=== PATIENT | female | born 2005 | race Caucasian/White ===

== ENCOUNTER 2024-02-13 14:48 | Inpatient (IN) | payer MEDICAID ==
[~2024-02-13] VITALS: Ht 157.5 cm; Wt 59.1 kg
[2024-02-13] MEDS: haloperidol lactate 5mg/ml inj ONE (15:13)
[2024-02-13] MEDS: diphenhydrAMINE 50 mg/ml inj IM ONE (15:13)
[2024-02-13] MEDS: haloperidol lactate 5mg/ml inj IM ONE ×2 (15:14)
[2024-02-13] MEDS: naloxone 2mg/2ml inj ONE (15:14)
[2024-02-13] MEDS: BUPIVAcaine 0.25% w/Epi /PF 30ml vial SQ ONE ×2 (15:14→18:58)
[2024-02-13] MEDS: naloxone 2mg/2ml inj IV STA (15:15)
[2024-02-13 15:19] LABS: ABG BASE EXCESS -5.4 mmol/L (-2.0-2.0); ABG HCO3 17.4 mmol/L (22.0-26.0); ABG OXYGEN SATURATION 96.8 % (94-97); ABG PCO2 (T) 27.2 mmHg (32.0-45.0); ABG PH (T) 7.425 (7.350-7.450); ABG PO2 (T) 92.1 mmHg (75.0-100.0); ALLEN'S TEST POSITIVE; FCOHb 0.3 % (0.0-3.9); FHHb 3.2 % (0.0-5.0); FMetHb 0.3 % (0.0-1.5); FO2Hb 96.2 % (94-97); MODE ROOM AIR; TOTAL HEMOGLOBIN 13.4 G/dl (12.0-16.0)
[2024-02-13 15:24] LABS: BASOPHILS # (AUTO) 0.1 X10'3 (0-0.2); BASOPHILS % (AUTO) 0.7 % (0-1); EOSINOPHILS % (AUTO) 0.1 % (0-6); HEMATOCRIT 38.5 % (35.0-45.0); HEMOGLOBIN 12.3 g/dl (12.0-16.0); LYMPHOCYTES # (AUTO) 3.4 X10'3 (1.1-4.8); LYMPHOCYTES % (AUTO) 30.8 % (21-51); MEAN CORPUSCULAR HEMOGLOBIN 26.1 PG (27.0-31.0); MEAN CORPUSCULAR HGB CONC 31.9 g/dL (33.0-36.5); MEAN CORPUSCULAR VOLUME 81.9 FL (78-98); MEAN PLATELET VOLUME 7.4 FL (7.4-10.4); MONOCYTES # (AUTO) 0.8 X10'3 (0-0.9); MONOCYTES % (AUTO) 7.4 % (2-12); NEUTROPHILS # (AUTO) 6.7 X10'3 (1.8-7.7); PLATELET COUNT 430 X10'3 (140-440); RED CELL DISTRIBUTION WIDTH 14.8 % (11.5-14.5); WHITE BLOOD COUNT 10.9 X10'3 (4.5-11.0)
[2024-02-13 15:37] LABS: ANION GAP 18 (8-16); BLOOD UREA NITROGEN 6 MG/DL (7-18); BUN/CREATININE RATIO 6.3 (10.0-20.0); CALCIUM 9.1 MG/DL (8.5-10.1); CHLORIDE 102 MMOL/L (99-107); CREATINE KINASE 116 U/L (26-192); CREATININE 0.95 MG/DL (0.40-0.90); GLUCOSE 166 MG/DL (70-104); SODIUM 139 MMOL/L (135-145); eGFR 76 ML/MIN
[2024-02-13 15:42] LABS: ETHANOL 328 MG/DL (<10); POTASSIUM 2.9 MMOL/L (3.5-5.1)
[2024-02-13] MEDS: diazepam inj 5 MG/ML inj. IV ONE ×3 (15:43→18:47)
[2024-02-13] MEDS: diazepam inj 5 MG/ML inj. ONE (15:43)
[2024-02-13 16:19] LABS: URINE HCG NEGATIVE (NEG)
[2024-02-13 16:59] LABS: URINE AMPHETAMINE SCREEN NEGATIVE (Neg); URINE BARBITUATE SCREEN NEGATIVE (Neg); URINE BENZODIAZEPINES SCREEN NEGATIVE (Neg); URINE CANNABINOID SCREEN POSITIVE (Neg); URINE COCAINE SCREEN NEGATIVE (Neg); URINE METHADONE SCREEN NEGATIVE (Neg); URINE PHENCYCLIDINE SCREEN NEGATIVE (Neg)
[2024-02-13] MEDS: ondansetron/PF 4mg/2ml inj IV ONE ×2 (18:13→23:09)
[2024-02-13] MEDS: LIDOcaine 1% w/EPI 1:100,000 inj. MDV 50 ML VIAL ONE (18:57)
[2024-02-13] MEDS: LIDOcaine 0.5% W/epiNEPHrine 1:200,000 50ml vial IJ ONE (18:58)
[2024-02-13] MEDS: ziprasidone IM 20mg inj **IM only IM ONE (20:11)
[2024-02-13] MEDS ORDERED: pantoprazole 40mg IV 80 MG in normal saline 100ml IV soln 100 ML IV ONE (22:20)
[2024-02-13] MEDS ORDERED: magnesium 4gm in 100ml NS 100 ML IV PRN (22:45)
[2024-02-13] MEDS ORDERED: HYDROmorphone/PF 0.2 MG/ML SYRINGE IV PRN (22:45)
[2024-02-13] MEDS ORDERED: potassium Cl 20 mEq SR tablet PO PRN (22:45)
[2024-02-13] MEDS ORDERED: dextrose 50%-water 50ml dispensing syringe IV PRN (22:45)
[2024-02-13] MEDS ORDERED: magnesium Cl slow-release 64mg tablet PO PRN (22:45)
[2024-02-13] MEDS ORDERED: mag hydrox/Alum hydrox/simeth 30ml oral suspension PO PRN (22:45)
[2024-02-13] MEDS ORDERED: potassium Cl 40MEQ/1/2NS 520ml 520 ML IV PRN (22:45)
[2024-02-13] MEDS ORDERED: magnesium 2GM in 50ml NS 50 ML IV PRN (22:45)
[2024-02-13 22:52] LABS: GASTRIC OCCULT BLOOD POSITIVE (Neg)
[2024-02-13] MEDS ORDERED: NO HOME MEDS (22:53)
[2024-02-13 23:06] LABS: MAGNESIUM 2.1 MG/DL (1.5-2.4); PHOSPHORUS 3.2 MG/DL (2.3-4.5)
[2024-02-13] MEDS: potassium Cl 20mEq in NS 1,000 ML IV SCH (23:09)
[2024-02-13] MEDS: pantoprazole 40 MG vial IV ONE (23:09)
[2024-02-13] MEDS: POTASSIUM BICARB 20meq eff tab 20 MEQ TABLET.EFF PO SCH (23:10)
[2024-02-13] MEDS: TETanus/Pertussis (Acell)/Diphther VAC/PF (Tdap-Adult) 0.5ml syringe IMVAC ONE (23:10)
[2024-02-13] MEDS: diazepam inj 5 MG/ML inj. IV PRN (23:59)
[2024-02-14 00:07] LABS: ALANINE AMINOTRANSFERASE 17 U/L (12-78); ALBUMIN 3.6 G/DL (3.4-5.0); ALKALINE PHOSPHATASE 73 IU/L (20-180); ASPARTATE AMINO TRANSFERASE 30 U/L (10-37); BILIRUBIN,DIRECT 0.1 MG/DL (0-0.3); BILIRUBIN,TOTAL 0.2 MG/DL (0.1-1.0); MAGNESIUM 1.9 MG/DL (1.5-2.4); PHOSPHORUS 3.4 MG/DL (2.3-4.5); TOTAL PROTEIN 7.2 G/DL (6.4-8.2)
[2024-02-14] MEDS: proCHLORperazine 10 MG/2 ml inj IV ONE (00:37)
[2024-02-14] MEDS: ringers solution, lacted 1,000 ML IV ONE (00:39)
[2024-02-14] MEDS: haloperidol lactate 5mg/ml inj IM PRN (00:58)
[2024-02-14] MEDS: potassium Cl 20 mEq SR tablet PO PRN (02:46)
[2024-02-14] MEDS: diphenhydrAMINE 50 mg/ml inj IV PRN (02:59)
[2024-02-14] MEDS: diazepam inj 5 MG/ML inj. IM ONE (03:41)
[2024-02-14] MEDS: ondansetron/PF 4mg/2ml inj IV PRN (05:41)
[2024-02-14 06:02] LABS: BILIRUBIN,URINE NEGATIVE (Neg); CLARITY,URINE SLIGHTLY CLOUDY (Clear); COLOR,URINE YELLOW (Yellow); GLUCOSE, URINE NEGATIVE (Neg); KETONES,URINE >=80 mg/dl (Neg); LEUKOCYTE ESTERASE ,URINE NEGATIVE (Neg); NITRITES, URINE POSITIVE (Neg); OCCULT BLOOD,URINE MODERATE (Neg); PH,URINE 6.5 (4.8-8.0); PROTEIN,URINE 30 mg/dl (Neg); UROBILINOGEN,URINE 0.2 E.U/dL (0.2-1.0)
[2024-02-14 06:03] LABS: UA COLLECTION TYPE CLN CATCH MIDSTREAM
[2024-02-14 06:31] LABS: SQUAMOUS EPITHELIAL CELL,UR MANY /LPF (FEW)
[2024-02-14 06:32] LABS: BACTERIA,URINE 4+ /HPF (Neg); RBC,URINE 50-100 /HPF (0-2)
[2024-02-14 06:33] LABS: TRANSITIONAL EPI CELLS,URINE MANY /HPF
[2024-02-14 06:34] LABS: MUCUS STRANDS FEW /LPF (Neg)
[2024-02-14] MEDS ORDERED: DIVA-52 PO (06:59)
[2024-02-14] MEDS ORDERED: TRAZ-251 PO (06:59)
[2024-02-14] MEDS ORDERED: OLAN7.5T18 (06:59)
[2024-02-14] MEDS ORDERED: HYDR50TA65 PO (06:59)
[2024-02-14] MEDS: thiamine 100mg/ml 2ml inj. IV SCH (07:48)
[2024-02-14] MEDS: folic acid 1mg/0.2ml inj IV SCH (08:00)
[2024-02-14] MEDS: K and/or MAG REPLACEMENT MC SCH (08:00)
[2024-02-14 08:10] LABS: BASOPHILS % (AUTO) 0.2 % (0-1); EOSINOPHILS % (AUTO) 0 % (0-6); HEMOGLOBIN 9.9 g/dl (12.0-16.0); LYMPHOCYTES # (AUTO) 1.2 X10'3 (1.1-4.8); LYMPHOCYTES % (AUTO) 7.9 % (21-51); MEAN CORPUSCULAR HEMOGLOBIN 26.6 PG (27.0-31.0); MEAN CORPUSCULAR HGB CONC 33.2 g/dL (33.0-36.5); MEAN CORPUSCULAR VOLUME 80.1 FL (78-98); MEAN PLATELET VOLUME 7.4 FL (7.4-10.4); MONOCYTES # (AUTO) 0.6 X10'3 (0-0.9); NEUTROPHILS % (AUTO) 87.9 % (42-75); PLATELET COUNT 304 X10'3 (140-440); RED BLOOD COUNT 3.74 X10'6 (4.20-5.60); RED CELL DISTRIBUTION WIDTH 14.7 % (11.5-14.5); WHITE BLOOD COUNT 14.8 X10'3 (4.5-11.0)
[2024-02-14 08:54] LABS: ALANINE AMINOTRANSFERASE 23 U/L (12-78); ALBUMIN 3.7 G/DL (3.4-5.0); ALBUMIN/GLOBULIN RATIO 1.1 (1.1-1.5); ALKALINE PHOSPHATASE 72 IU/L (20-180); ANION GAP 17 (8-16); ASPARTATE AMINO TRANSFERASE 65 U/L (10-37); BILIRUBIN,TOTAL 0.3 MG/DL (0.1-1.0); BLOOD UREA NITROGEN 3 MG/DL (7-18); BUN/CREATININE RATIO 4.2 (10.0-20.0); CALCIUM 8.3 MG/DL (8.5-10.1); CHLORIDE 109 MMOL/L (99-107); CREATININE 0.71 MG/DL (0.40-0.90); GLUCOSE 139 MG/DL (70-104); SODIUM 144 MMOL/L (135-145); eCRCL 101 ML/MIN; eGFR > 90 ML/MIN
[2024-02-14 08:56] LABS: CREATINE KINASE 2576 U/L (26-192)
[2024-02-14 11:00] VITALS: BP 121/68; PULSE 111; RESP 16; TEMP 97.8; O2SAT 98
[2024-02-14] MEDS: pantoprazole 40 MG vial IV SCH (13:22)
[2024-02-14 15:00] VITALS: BP 109/46; PULSE 91; RESP 15; TEMP 97.1; O2SAT 96
[2024-02-14] MEDS: nicotine 21mg patch - 24 hr TD SCH (15:06)
[2024-02-14] MEDS: HYDROmorphone inj. 0.5 MG/0.5 ML DISP.SYRIN IV PRN (17:02)
[2024-02-14 18:00] VITALS: BP 120/65; PULSE 94; RESP 16; TEMP 97.4; O2SAT 95
[2024-02-14 20:00] VITALS: RESP 16; O2SAT 98
[2024-02-14 22:00] VITALS: BP 124/76; PULSE 112; RESP 16; TEMP 97.3; O2SAT 98
[2024-02-14 22:37] LABS: ALANINE AMINOTRANSFERASE 24 U/L (12-78); ALBUMIN/GLOBULIN RATIO 1.1 (1.1-1.5); ALKALINE PHOSPHATASE 60 IU/L (20-180); ANION GAP 6 (8-16); ASPARTATE AMINO TRANSFERASE 46 U/L (10-37); BILIRUBIN,TOTAL 0.3 MG/DL (0.1-1.0); BLOOD UREA NITROGEN 6 MG/DL (7-18); BUN/CREATININE RATIO 10.7 (10.0-20.0); CALCIUM 7.8 MG/DL (8.5-10.1); CHLORIDE 104 MMOL/L (99-107); CREATININE 0.56 MG/DL (0.40-0.90); GLUCOSE 92 MG/DL (70-104); POTASSIUM 3.9 MMOL/L (3.5-5.1); SODIUM 134 MMOL/L (135-145); TOTAL PROTEIN 5.8 G/DL (6.4-8.2); eCRCL 128 ML/MIN; eGFR > 90 ML/MIN
[2024-02-15 02:00] VITALS: BP 121/68; PULSE 111; RESP 16; TEMP 97.8; O2SAT 98
[2024-02-15 06:00] VITALS: BP 108/67; PULSE 88; RESP 19; TEMP 98.2; O2SAT 100
[2024-02-15 07:19] LABS: BASOPHILS # (AUTO) 0.1 X10'3 (0-0.2); BASOPHILS % (AUTO) 0.6 % (0-1); EOSINOPHILS % (AUTO) 0.3 % (0-6); HEMATOCRIT 26.6 % (35.0-45.0); HEMOGLOBIN 8.8 g/dl (12.0-16.0); LYMPHOCYTES % (AUTO) 37.8 % (21-51); MEAN CORPUSCULAR HEMOGLOBIN 26.8 PG (27.0-31.0); MEAN CORPUSCULAR VOLUME 81.3 FL (78-98); MEAN PLATELET VOLUME 7.5 FL (7.4-10.4); MONOCYTES # (AUTO) 0.9 X10'3 (0-0.9); MONOCYTES % (AUTO) 8.3 % (2-12); NEUTROPHILS # (AUTO) 5.6 X10'3 (1.8-7.7); PLATELET COUNT 243 X10'3 (140-440); RED BLOOD COUNT 3.28 X10'6 (4.20-5.60); RED CELL DISTRIBUTION WIDTH 14.9 % (11.5-14.5); WHITE BLOOD COUNT 10.5 X10'3 (4.5-11.0)
[2024-02-15 07:41] LABS: ALANINE AMINOTRANSFERASE 18 U/L (12-78); ALBUMIN 2.9 G/DL (3.4-5.0); ALBUMIN/GLOBULIN RATIO 1.1 (1.1-1.5); ALKALINE PHOSPHATASE 57 IU/L (20-180); ANION GAP 7 (8-16); ASPARTATE AMINO TRANSFERASE 37 U/L (10-37); BILIRUBIN,TOTAL 0.3 MG/DL (0.1-1.0); BLOOD UREA NITROGEN 5 MG/DL (7-18); CALCIUM 8.2 MG/DL (8.5-10.1); CHLORIDE 107 MMOL/L (99-107); GLUCOSE 89 MG/DL (70-104); SODIUM 139 MMOL/L (135-145); TOTAL CARBON DIOXIDE 24.8 MMOL/L (24-32); TOTAL PROTEIN 5.6 G/DL (6.4-8.2); eCRCL 143 ML/MIN; eGFR > 90 ML/MIN
[2024-02-15 11:00] VITALS: BP 114/69; PULSE 97; RESP 15; TEMP 97.3; O2SAT 96
[2024-02-15] MEDS: hydrOXYzine 25 MG tablet PO SCH (13:01)
[2024-02-15] MEDS: lactose-reduced food (Ensure Enlive) - 237ml bottle PO SCH (13:02)
[2024-02-15] MEDS: acetaminophen 325mg tablet PO PRN (15:37)
[2024-02-15 18:00] VITALS: BP 106/56; PULSE 73; RESP 15; TEMP 97.9; O2SAT 99
[2024-02-15] MEDS: pantoprazole 40mg Tablet.DR PO SCH (19:29)
[2024-02-15 20:00] VITALS: RESP 15; O2SAT 99
[2024-02-15] MEDS: divalproex sodium 500mg tablet.DR PO SCH (20:53)
[2024-02-15] MEDS: traZODone 50mg tablet PO SCH (20:54)
[2024-02-15] MEDS: ondansetron 4mg rapidly disintigrating tab PO PRN (21:04)
[2024-02-15 22:00] VITALS: BP 109/60; PULSE 68; RESP 14; TEMP 97.9; O2SAT 98
[2024-02-16 02:00] VITALS: BP 120/63; PULSE 72; RESP 16; TEMP 97.9; O2SAT 97
[2024-02-16 06:00] VITALS: BP 99/63; PULSE 63; RESP 18; TEMP 98.5; O2SAT 99
[2024-02-16 07:11] LABS: BASOPHILS # (AUTO) 0.1 X10'3 (0-0.2); EOSINOPHILS # (AUTO) 0.1 X10'3 (0-0.9); MEAN PLATELET VOLUME 7.5 FL (7.4-10.4); MONOCYTES # (AUTO) 0.7 X10'3 (0-0.9); NEUTROPHILS # (AUTO) 3.8 X10'3 (1.8-7.7)
[2024-02-16 07:14] LABS: EOSINOPHILS % (AUTO) 1.6 % (0-6); HEMATOCRIT 29.9 % (35.0-45.0); LYMPHOCYTES # (AUTO) 4.6 X10'3 (1.1-4.8); LYMPHOCYTES % (AUTO) 49.4 % (21-51); MEAN CORPUSCULAR HEMOGLOBIN 27.1 PG (27.0-31.0); MEAN CORPUSCULAR HGB CONC 33.3 g/dL (33.0-36.5); MEAN CORPUSCULAR VOLUME 81.4 FL (78-98); MONOCYTES % (AUTO) 7.3 % (2-12); NEUTROPHILS % (AUTO) 40.7 % (42-75); PLATELET COUNT 286 X10'3 (140-440); RED BLOOD COUNT 3.68 X10'6 (4.20-5.60); RED CELL DISTRIBUTION WIDTH 14.5 % (11.5-14.5); WHITE BLOOD COUNT 9.3 X10'3 (4.5-11.0)
[2024-02-16 07:19] LABS: ALANINE AMINOTRANSFERASE 24 U/L (12-78); ALBUMIN 3.1 G/DL (3.4-5.0); ALKALINE PHOSPHATASE 64 IU/L (20-180); ANION GAP 6 (8-16); ASPARTATE AMINO TRANSFERASE 31 U/L (10-37); BILIRUBIN,TOTAL 0.2 MG/DL (0.1-1.0); BLOOD UREA NITROGEN 3 MG/DL (7-18); BUN/CREATININE RATIO 5.6 (10.0-20.0); CALCIUM 8.5 MG/DL (8.5-10.1); CHLORIDE 103 MMOL/L (99-107); CREATININE 0.54 MG/DL (0.40-0.90); GLUCOSE 92 MG/DL (70-104); POTASSIUM 4.4 MMOL/L (3.5-5.1); SODIUM 136 MMOL/L (135-145); TOTAL CARBON DIOXIDE 26.8 MMOL/L (24-32); TOTAL PROTEIN 6.1 G/DL (6.4-8.2); eCRCL 133 ML/MIN; eGFR > 90 ML/MIN
[2024-02-16 07:30] VITALS: RESP 16; O2SAT 99
[2024-02-16 10:00] VITALS: BP 104/64; PULSE 72; RESP 17; TEMP 97.4; O2SAT 98
[2024-02-16] MEDS: oxyCODONE/APAP 5-325mg tablet PO PRN (11:37)
[2024-02-16] MEDS: magnesium hydroxide 30ml (MOM) UD suspension PO PRN (11:37)
[2024-02-16 14:00] VITALS: BP 96/46; PULSE 66; RESP 16; TEMP 98; O2SAT 97
[2024-02-16] MEDS ORDERED: PER5325T PO (17:31)
[2024-02-16 18:03] VITALS: RESP 16
[2024-02-18] MEDS ORDERED: folic acid 1mg tablet PO SCH (08:00)
[2024-02-18] MEDS ORDERED: thiamine 100mg tablet PO SCH (08:00)
== END 2024-02-16 17:53 | disposition home or self-care (01) | DRG 242 ==
LOC: ER 14:48 → EDBD 14:48 → ED HOLD 22:51 → EDBEDREQ 02-14 09:40 → PCU 3S 02-14 10:54
PROVIDERS: ADMIT Surgery Surgical Critical Care; ATTEND Internal Medicine
PROC: 0XQFXZZ Repair Left Lower Arm, External Approach (ICD-10-PCS; principal; 2024-02-13)
DX: K22.6 Gastro-esophageal laceration-hemorrhage syndrome (principal); M62.82 Rhabdomyolysis; R45.851 Suicidal ideations; D62 Acute posthemorrhagic anemia; S51.812A Laceration without foreign body of left forearm, initial encounter; X58.XXXA Exposure to other specified factors, initial encounter; Z20.822 Contact with and (suspected) exposure to COVID-19; E87.6 Hypokalemia; F10.929 Alcohol use, unspecified with intoxication, unspecified; Y93.89 Activity, other specified; Y92.89 Other specified places as the place of occurrence of the external cause; Y99.8 Other external cause status; Z87.19 Personal history of other diseases of the digestive system; Z79.899 Other long term (current) drug therapy
CPT/HCPCS: 36415; 36600; 71045; 80048; 80053; 80076; 80305; 80320; 81001; 81025; 82271; 82550; 82803; 82948; 83735; 84100; 85018; 85025; 87040; 87811; 90715; 93005; 99291; 99292; A4615; A6223; A6446; A6449; C1758; C9113; G0378; J1170; J1200; J1630; J2310; J2405; J3360; J3411; J3480; J3486; J3490; J7120; Q0177

== ENCOUNTER 2024-04-25 10:32 | Emergency (ER) | payer MEDICAID ==
[~2024-04-25] VITALS: Ht 172.7 cm; Wt 63.0 kg
[~2024-04-25 10:32] MED LIST: DIVA-52 PO; HYDR50TA65 PO; OLAN7.5T18; PER5325T PO; TRAZ-251 PO
[2024-04-25 10:48] VITALS: TEMP 98
[2024-04-25 11:16] LABS: BASOPHILS # (AUTO) 0.1 X10'3 (0-0.2); BASOPHILS % (AUTO) 0.6 % (0-1); EOSINOPHILS # (AUTO) 0.1 X10'3 (0-0.9); EOSINOPHILS % (AUTO) 0.6 % (0-6); HEMOGLOBIN 12.1 g/dl (12.0-16.0); LYMPHOCYTES % (AUTO) 19.7 % (21-51); MEAN CORPUSCULAR HGB CONC 32.7 g/dL (33.0-36.5); MEAN CORPUSCULAR VOLUME 76.4 FL (78-98); MEAN PLATELET VOLUME 7.9 FL (7.4-10.4); MONOCYTES # (AUTO) 0.7 X10'3 (0-0.9); MONOCYTES % (AUTO) 6.5 % (2-12); NEUTROPHILS # (AUTO) 7.4 X10'3 (1.8-7.7); NEUTROPHILS % (AUTO) 72.6 % (42-75); PLATELET COUNT 391 X10'3 (140-440); RED BLOOD COUNT 4.84 X10'6 (4.20-5.60); RED CELL DISTRIBUTION WIDTH 15.3 % (11.5-14.5); WHITE BLOOD COUNT 10.2 X10'3 (4.5-11.0)
[2024-04-25 11:42] LABS: ALANINE AMINOTRANSFERASE 22 U/L (12-78); ALBUMIN 4.3 G/DL (3.4-5.0); ALBUMIN/GLOBULIN RATIO 1.2 (1.1-1.5); ALKALINE PHOSPHATASE 81 IU/L (20-180); ANION GAP 10 (8-16); ASPARTATE AMINO TRANSFERASE 18 U/L (10-37); BILIRUBIN,TOTAL 0.5 MG/DL (0.1-1.0); BLOOD UREA NITROGEN 15 MG/DL (7-18); BUN/CREATININE RATIO 19.5 (10.0-20.0); CALCIUM 9.5 MG/DL (8.5-10.1); CHLORIDE 102 MMOL/L (99-107); CREATININE 0.77 MG/DL (0.40-0.90); FREE T4 (FREE THYROXINE) 1.25 NG/DL (0.73-1.40); GLUCOSE 107 MG/DL (70-104); LIPASE 32 U/L (16-77); POTASSIUM 3.7 MMOL/L (3.5-5.1); SODIUM 137 MMOL/L (135-145); THYROID STIMULATING HORMONE 0.69 ulU/ml (0.34-4.50); TOTAL CARBON DIOXIDE 24.6 MMOL/L (24-32); eCRCL 117 ML/MIN; eGFR > 90 ML/MIN
[2024-04-25 11:52] LABS: HCG SERUM QL NEGATIVE
[2024-04-25 12:07] LABS: BILIRUBIN,URINE NEGATIVE (Neg); CLARITY,URINE CLEAR (Clear); COLOR,URINE YELLOW (Yellow); GLUCOSE, URINE NEGATIVE (Neg); KETONES,URINE 15 mg/dl (Neg); LEUKOCYTE ESTERASE ,URINE TRACE (Neg); NITRITES, URINE NEGATIVE (Neg); OCCULT BLOOD,URINE NEGATIVE (Neg); PH,URINE 7.5 (4.8-8.0); PROTEIN,URINE NEGATIVE (Neg); UROBILINOGEN,URINE 0.2 E.U/dL (0.2-1.0)
[2024-04-25 12:11] LABS: UA COLLECTION TYPE NON-SPECIFIED
[2024-04-25 12:15] LABS: AMORPHOUS PHOSPHATES 1+
[2024-04-25 12:16] LABS: RBC,URINE NONE SEEN /HPF (0-2)
[2024-04-25 12:17] LABS: BACTERIA,URINE 2+ /HPF (Neg); MUCUS STRANDS NONE SEEN /LPF (Neg); SQUAMOUS EPITHELIAL CELL,UR MODERATE /LPF (FEW)
[2024-04-25 13:00] VITALS: BP 122/86; PULSE 75; RESP 15; O2SAT 100
[2024-04-25] MEDS ORDERED: ONDA-243 PO (13:23)
[2024-04-25] MEDS ORDERED: DICY20TA17 PO (13:23)
[2024-04-25] MEDS: ondansetron 4mg rapidly disintigrating tab PO ONE (13:29)
[2024-04-25] MEDS: mag hydrox/Alum hydrox/simeth 30ml oral suspension PO ONE (13:29)
[2024-04-25] MEDS: dicyclomine 10 MG capsule PO ONE (13:29)
[2024-04-25] MEDS: LIDOcaine 2% Viscous 15ml cup MM PRN (13:29)
== END 2024-04-25 13:34 | disposition home or self-care (01) ==
LOC: ER 10:34
DX: K21.9 Gastro-esophageal reflux disease without esophagitis (principal); Z79.899 Other long term (current) drug therapy
CPT/HCPCS: 36415; 71045; 80053; 81001; 83690; 84439; 84443; 84703; 85025; 87077; 87088; 87186; 93005; 99285

== ENCOUNTER 2024-05-19 15:10 | Emergency (ER) | payer MEDICAID ==
[~2024-05-19 15:10] MED LIST changes: +DICY20TA17 PO; +ONDA-243 PO
== END 2024-05-19 16:17 | disposition left against medical advice (07) ==
LOC: ER 15:10
DX: T83.32XA Displacement of intrauterine contraceptive device, initial encounter (principal); Z53.21 Procedure and treatment not carried out due to patient leaving prior to being seen by health care provider

== ENCOUNTER 2024-11-19 16:44 | Emergency (ER) | payer MEDICAID ==
[~2024-11-19] VITALS: Ht 172.7 cm; Wt 55.7 kg
[2024-11-19 16:45] VITALS: BP 116/77; PULSE 101; TEMP 98.7; O2SAT 98
[2024-11-19 16:55] VITALS: RESP 16
== END 2024-11-19 17:40 | disposition home or self-care (01) ==
LOC: ER 16:45
DX: N93.9 Abnormal uterine and vaginal bleeding, unspecified (principal); R10.2 Pelvic and perineal pain; F10.90 Alcohol use, unspecified, uncomplicated; Z79.899 Other long term (current) drug therapy; Y90.9 Presence of alcohol in blood, level not specified
CPT/HCPCS: 76830; 76856; 93976; 99284